=== PATIENT | male | born 1990 | race Caucasian/White ===

== ENCOUNTER 2017-06-08 17:12 | Emergency (ER) | payer SELFPAY ==
[~2017-06-08] VITALS: Ht 172.7 cm; Wt 61.2 kg
[~2017-06-08 17:12] MED LIST: CIPROFLOXACIN250 MG PO; CYCLOBENZAPRINE10 MG PO; IBUPROFEN600 MG PO; IBUPROFEN800 MG PO; PENICILLIN V P250 MG PO; PERCOCET 5-3251 EACH PO; TAMSULOSIN HCL0.4 MG PO; TRAMADOL HCL50 MG PO; ZOFRAN ODT4 MG PO; ZOFRAN4 MG PO
== END 2017-06-08 17:40 | disposition home or self-care (01) ==
LOC: ED 17:12
DX: Z00.8 Encounter for other general examination (principal); F17.200 Nicotine dependence, unspecified, uncomplicated; Z79.899 Other long term (current) drug therapy
CPT/HCPCS: 99282

== ENCOUNTER 2019-01-06 16:48 | Emergency (ER) | payer SELFPAY ==
[~2019-01-06] VITALS: Ht 172.7 cm; Wt 63.5 kg
[~2019-01-06 16:48] MED LIST changes: +BACTRIM DS TAB1 EACH PO; +KETOROLAC TROME10 MG PO
[2019-01-06] MEDS ORDERED: DOXYCYCLINE HY100 MG PO (18:35)
[2019-01-06] MEDS ORDERED: ULTRAM50 MG PO (18:37)
== END 2019-01-06 19:36 | disposition home or self-care (01) ==
LOC: ED 16:48
DX: N45.1 Epididymitis (principal); Z87.442 Personal history of urinary calculi
CPT/HCPCS: 76870; 96372; 99284-25; J0696; J1885

== ENCOUNTER 2019-01-21 04:50 | Emergency (ER) | payer SELFPAY ==
[~2019-01-21] VITALS: Ht 172.7 cm; Wt 63.5 kg
[~2019-01-21 04:50] MED LIST changes: +DOXYCYCLINE HY100 MG PO; +ULTRAM50 MG PO
--- OUTSIDE RECORDS SUMMARY | 2019-01-21 04:52 | XMS ---
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 Niya has no Care Guidelines for this patient. Saúl VISIT COUNT (12 MO.) [address] [facility] TOTAL 4 NOTE: Visits indicate total known visits. ED/C VISIT TRACKING (12 MO.) 01/21/2019 04:51 [facility] TYPE: Emergency COMPLAINT: - GROIN PAIN 01/06/2019 16:49 [facility] TYPE: Emergency COMPLAINT: - TESTICULAR PAIN DIAGNOSES: - Epididymitis - Left testicular pain - Personal history of urinary calculi 04/05/2018 06:08 [facility] TYPE: Emergency COMPLAINT: - TESTICAL PAIN DIAGNOSES: - Nicotine dependence, unspecified, uncomplicated - Left testicular pain - Orchitis 04/03/2018 09:14 [facility] TYPE: Emergency COMPLAINT: - L TESTICULAR/GROIN PAIN,NON INJURY DIAGNOSES: - Left testicular pain - Nicotine dependence, unspecified, uncomplicated - Orchitis INPATIENT VISIT TRACKING (12 MO.) No inpatient visits to display in this time frame [email or web address]
[2019-01-21] MEDS ORDERED: NORCO 5-325 TA1 EACH PO (05:14)
[2019-01-21] MEDS ORDERED: CIPRO500 MG PO (05:14)
== END 2019-01-21 05:25 | disposition home or self-care (01) ==
LOC: ED 04:50
DX: N45.1 Epididymitis (principal); F17.200 Nicotine dependence, unspecified, uncomplicated
CPT/HCPCS: 99283

== ENCOUNTER 2019-06-27 12:31 | Emergency (ER) | payer SELFPAY ==
[~2019-06-27] VITALS: Ht 172.7 cm; Wt 63.5 kg
[~2019-06-27 12:31] MED LIST changes: +CIPRO500 MG PO; +NORCO 5-325 TA1 EACH PO
--- OUTSIDE RECORDS SUMMARY | 2019-06-27 12:34 | XMS ---
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 Niya has no Care Guidelines for this patient. Saúl VISIT COUNT (12 MO.) 3 ANJEL[facility] Wick TOTAL 3 NOTE: Visits indicate total known visits. ED/C VISIT TRACKING (12 MO.) 06/27/2019 12:32 [facility] TYPE: Emergency COMPLAINT: - LEFT FOOT PAIN 01/21/2019 04:51 [facility] TYPE: Emergency COMPLAINT: - GROIN PAIN DIAGNOSES: - Nicotine dependence, unspecified, uncomplicated - Epididymitis 01/06/2019 16:49 [facility] TYPE: Emergency COMPLAINT: - TESTICULAR PAIN DIAGNOSES: - Epididymitis - Left testicular pain - Personal history of urinary calculi INPATIENT VISIT TRACKING (12 MO.) No inpatient visits to display in this time frame [email or web address]
[2019-06-27] MEDS ORDERED: IBUPROFEN200 MG PO (16:55)
== END 2019-06-27 16:55 | disposition home or self-care (01) ==
LOC: ED 12:31
DX: M79.672 Pain in left foot (principal); F17.200 Nicotine dependence, unspecified, uncomplicated
CPT/HCPCS: 73630; 99283; 99406

== ENCOUNTER 2024-11-02 20:35 | Emergency (ER) | payer OTHER ==
[~2024-11-02] VITALS: Ht 172.7 cm; Wt 66.0 kg
[~2024-11-02 20:35] MED LIST changes: +IBUPROFEN200 MG PO
--- OUTSIDE RECORDS SUMMARY | 2024-11-02 20:42 | XMS ---
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 Niya has no Care Guidelines for this patient. Saúl VISIT COUNT (12 MO.) 1 ANJELICA Wick TOTAL 1 NOTE: Visits indicate total known visits. ED/UCC VISIT TRACKING (12 MO.) 11/02/2024 20:35 [facility] TYPE: Emergency COMPLAINT: - RT WRIST INJURY INPATIENT VISIT TRACKING (12 MO.) No inpatient visits to display in this time frame [email or web address]
[2024-11-02] MEDS ORDERED: HYDROCODON-ACE1 EA10 PO (23:13)
[2024-11-02] MEDS ORDERED: HYDROCODONE BIT/ACETAMINOPHEN 5/325 MG 1 TAB HOME.PACK PO PRN (23:15)
[2024-11-02] MEDS ORDERED: HYDROCODONE/ACETA 5/325 TAB PO ONE (23:15)
[2024-11-02 23:30] VITALS: BP 120/72
== END 2024-11-02 23:35 | disposition home or self-care (01) ==
LOC: ED 20:35
DX: S62.141A Displaced fracture of body of hamate [unciform] bone, right wrist, initial encounter for closed fracture (principal); S62.316A Displaced fracture of base of fifth metacarpal bone, right hand, initial encounter for closed fracture; Z87.442 Personal history of urinary calculi; F17.200 Nicotine dependence, unspecified, uncomplicated; W22.09XA Striking against other stationary object, initial encounter
CPT/HCPCS: 29125; 73110; 99283; A9270